=== PATIENT | male | born 1940 | race African-American/Black ===

== ENCOUNTER 2019-08-05 10:56 | Emergency (ER) | payer MEDICARE ==
[~2019-08-05] VITALS: Ht 170.2 cm; Wt 59.0 kg
[~2019-08-05 10:56] MED LIST: CARB1TAB21 PO; FLUD0.1T PO; SIMV10TA97 PO
[2019-08-05] MEDS ORDERED: LIDOCAINE HCL 1% 20ML VIAL (Pyxis) INJ INFIL ONE (11:15)
[2019-08-05] MEDS ORDERED: TETANUS, DIPHTHERIA, PERTUSSIS VAC/PF 0.5ML (>7YR OLD) IM ONE (11:15)
[2019-08-05 11:34] LABS: BASOPHILS % 0.9 % (0.0-2.0); HEMATOCRIT. 39.6 % (42.0-52.0); HEMOGLOBIN. 13.5 g/dL (14.0-18.0); LYMPHOCYTES % 25.4 % (20.0-50.0); MEAN CORPUSCULAR HEMOGLOBIN 30.9 pg (28.0-32.0); MEAN CORPUSCULAR VOLUME 90.5 fL (80.0-94.0); MEAN PLATELET VOLUME 8.8 fl (7.4-10.4); MONOCYTES % 5.7 % (2.0-8.0); PLATELET 338 x1000/uL (130-400); RED BLOOD CELL COUNT 4.37 mill/uL (4.7-6.1); RED CELL DISTRIBUTION WIDTH 13.9 % (11.6-14.6)
[2019-08-05 11:42] LABS: CHLORIDE 107 mEq/L (98-107)
[2019-08-05] MEDS ORDERED: BACITRACIN ZINC OINT UDPKT TOP ONE (13:45)
[2019-08-05 14:03] VITALS: BP 140/78
== END 2019-08-05 14:04 | disposition home or self-care (01) ==
LOC: ER 10:56
DX: R55 Syncope and collapse (principal); S09.8XXA Other specified injuries of head, initial encounter; S01.81XA Laceration without foreign body of other part of head, initial encounter; D64.9 Anemia, unspecified; N28.9 Disorder of kidney and ureter, unspecified; G20 Parkinson's disease; F02.80 Dementia in other diseases classified elsewhere, unspecified severity, without behavioral disturbance, psychotic disturbance, mood disturbance, and anxiety; E78.00 Pure hypercholesterolemia, unspecified; W18.12XA Fall from or off toilet with subsequent striking against object, initial encounter; Y93.89 Activity, other specified; Y92.9 Unspecified place or not applicable
CPT/HCPCS: 12013; 36415; 70450; 71045; 80053; 83880; 84484; 85025; 93005; 99285; J3490